=== PATIENT | female | born 1970 | race Asian ===

== ENCOUNTER 2019-07-04 18:39 | Emergency (ER) | payer OTHER ==
[2019-07-04 21:02] LABS: URINE BLOOD (Dip) POC Negative (NEGATIVE); URINE GLUCOSE (Dip) POC Negative (NEGATIVE); URINE KETONES (Dip) POC Negative (NEGATIVE); URINE LEUKOCYTE EST (Dip) POC 1+ (NEGATIVE); URINE NITRITE (Dip) POC Negative (NEGATIVE); URINE TOTAL PROTEIN POC Trace (NEGATIVE)
[2019-07-04 21:02] LABS: URINE PH (Dip) POC 7.5 (5.0-8.5)
== END 2019-07-04 21:41 | disposition home or self-care (01) ==
LOC: FTE 18:39
DX: M54.5 Low back pain (principal); E11.9 Type 2 diabetes mellitus without complications; I10 Essential (primary) hypertension; Z79.84 Long term (current) use of oral hypoglycemic drugs
CPT/HCPCS: 81003; 81025; 99283